=== PATIENT | male | born 1980 | race Caucasian/White ===

== ENCOUNTER 2022-10-15 06:03 | Emergency (ER) | payer OTHER, SELFPAY ==
[2022-10-15] VITALS (24 sets, daily range): BP systolic 123–143; BP diastolic 78–92; PULSE 59–78; RESP 9–21; TEMP 37.1; O2SAT 94–98; BMI 28.2
--- NOTE | 2022-10-15 06:11 | ECG_ITS ---
[facility] Test Date: 2022-10-15 Pat Name: AVERY QUINTANA Department: Room: - Gender: Male Registered Nurse Hh Case Manager: : 1980 Requested By: [id number] Order Number: [id number] Reading MD: EMILY SMITH Measurements Intervals [place] Rate: 69 P: 62 MN: 146 QRS: -56 QRSD: 104 T: 36 QT: 386 QTc: 406 Interpretive Statements 1100 Sinus rhythm 2630 Left anterior fascicular block 9150 abnormal ECG No previous ECG available for comparison Electronically Signed On 10-16-2022 7:18:34 EDT by EMILY SMITH
[2022-10-15 07:15] LABS: Basophils Absolute Auto 0.1 10^3/uL (0.0-0.1); Basophils Percent Auto 0.7 % (0.2-2.0); Eosinophils Absolute Auto 0.8 10^3/uL (0.0-0.7); Eosinophils Percent Auto 5.7 % (0.9-7.0); Hemoglobin 15.6 g/dL (14.0-18.0); Immature Granulocytes Abs Auto 0.09 10^3/uL (0.00-0.03); Immature Granulocytes Pct Auto 0.6 % (0.0-0.5); Lymphocytes Absolute Auto 2.3 10^3/uL (1.2-3.8); Lymphocytes Percent Auto 16.5 % (20.5-60.0); Mean Corpuscular HGB Conc 34.7 g/dL (29.9-35.2); Mean Corpuscular Hemoglobin 30.2 pg (25.9-34.0); Mean Corpuscular Volume 87.2 fL (80.0-94.0); Mean Platelet Volume 8.9 fL (9.5-13.5); Monocytes Absolute Auto 1.4 10^3/uL (0.3-0.8); Neutrophils Absolute Auto 9.4 10^3/uL (1.4-6.5); Neutrophils Percent Auto 66.5 % (43.0-75.0); Platelet Count 569 10^3/uL (150-450); Red Blood Count 5.16 10^6/uL (4.70-6.10); Red Cell Distribution Width 14.1 % (11.0-15.0); White Blood Count 14.1 10^3/uL (4.0-11.0)
[2022-10-15] MEDS: 0.9 % SODIUM CHLORIDE 1,000 ML 1000 ML IV (07:18)
--- NOTE | 2022-10-15 07:23 | ED_ITS ---
HPI - Dizziness General Chief Complaint: Dizziness Stated Complaint: dizziness Time Seen by Provider: 10/15/22 06:55 Source: patient Mode of arrival: walk-in Limitations: no limitations History of Present Illness HPI Narrative: pt presents to emergency department complaining of dizziness. Patient states he got up this morning and he went from a laying down to seated position and became dizzy as if the room was spinning. He states he felt unsteady as if he was drunk. He denies any nausea. He denies any visual disturbance, speech difficulties, paresthesias, or weakness. He denied any chest pain, palpitations, shortness of breath. Patient has a history of Crohn's disease and he has bloody diarrhea. He was seen in the emergency department at [place] last week had a CT scan of his abdomen done which showed inflammation and was started on Cipro, Flagyl, and prednisone 10 mg by his primary care doctor. He states he is still taking it doesn't feel like that is high enough dose for him. He has not seen a instructional technology coordinator in several years. He denies any fever, chills, or cough. Related Data Home Medications Medication Instructions Recorded Confirmed cholecalciferol (vitamin D3) 50 50 mcg PO DAILY 10/15/22 10/15/22 mcg (2,000 unit) capsule meloxicam 15 mg tablet 15 mg PO DAILY 10/15/22 10/15/22 metronidazole 500 mg tablet 500 mg PO Q8H 10/15/22 10/15/22 omeprazole 20 mg capsule,delayed 20 mg PO DAILY 10/15/22 10/15/22 release prednisone 10 mg tablet 10 mg PO DAILY 10/15/22 10/15/22 sucralfate 1 gram tablet 1 g PO BID 10/15/22 10/15/22 Previous Rx's Medication Instructions Recorded meclizine 25 mg tablet 25 mg PO TID PRN dizziness #20 tabs 10/15/22 methylprednisolone 4 mg tablets in 4 mg PO DAILY #21 ea 10/15/22 a dose pack (Medrol (Sohan)) Allergies Allergy/AdvReac Type Severity Reaction Status Date / Time No Known Drug Allergies Allergy Verified 10/15/22 06:13 Review of Systems ROS Status of ROS 10 or more systems reviewed and unremarkable except as noted in history and below [facility] Medical History (Updated 10/15/22 @ 09:53 by Gracie Gerber MD) Social History Smoking status: Former smoker Exam Narrative Exam Narrative: Nurses notes and vital signs reviewed and patient is not hypoxic. General: Nontoxic, Well-appearing and in no apparent distress. Skin: Warm, dry, no pallor noted. No Rash Head: Normocephalic, atraumatic. Neck: Supple, non-tender. Eye: Pupils are equal, round and EOMI. No scleral icterus. Ears, Nose, Mouth, and Throat: TM clear, no posterior oropharynx erythema or nasal mucosal hypertrophy, uvula is mid-line Oral mucosa is moist Cardiovascular: Regular Rate and Rhythm without murmur, gallop or rub. Respiratory: No accessory muscle use or respiratory distress. Lungs are clear to auscultation, no wheezing, rales or rhonchi Chest Wall: no tenderness Back: No midline thoracic or lumbar vertebral tenderness. No CVA tenderness Musculoskeletal: normal ROM, no calf or popliteal tenderness, no lower extremity edema/swelling GI: Abdomen is soft, non-distended. Normal bowel sounds. No masses appreciated. mild llq tenderness to palpation. No rebound, guarding, or rigidity noted. Neurological: A&O x4. No cranial nerve dysfunction observed. No truncal ataxia. Moves all extremities. Sensation intact. Psychiatric: Cooperative and interactive. Normal mood and affect. Constitutional Vital Signs, click to edit/add: Last Vital Signs Temp 98.7 F 10/15/22 06:07 Pulse 71 10/15/22 10:23 Resp 16 10/15/22 10:23 BP 137/90 H 10/15/22 10:23 Pulse Ox 96 10/15/22 10:23 O2 Del Method Room Air 10/15/22 10:23 Course Vital Signs Vital signs: Vital Signs Temperature 98.7 F 10/15/22 06:07 Pulse Rate 72 10/15/22 06:07 Respiratory Rate 20 10/15/22 06:07 Blood Pressure 143/84 H 10/15/22 06:07 Pulse Oximetry 96 10/15/22 06:07 Oxygen Delivery Method Room Air 10/15/22 06:07 Temperature 98.7 F 10/15/22 06:07 Pulse Rate 71 10/15/22 10:23 Respiratory Rate 16 10/15/22 10:23 Blood Pressure 137/90 H 10/15/22 10:23 Pulse Oximetry 96 10/15/22 10:23 Oxygen Delivery Method Room Air 10/15/22 10:23 MDM - Dizziness MDM Narrative Medical decision making narrative: Patient stated he was having some headaache to the frontal and occipital area. The scalp the brain was ordered and is unremarkable. Patient was given IV fluids. His history and physical are more consistent with vertigo. Will get records from [place]. Hemoglobin is normal. Patient given Antivert, and Solu- Medrol.CT scan results are unremarkable. Patient's symptoms are improved. At this time the patient is without objective evidence of an acute process requiring hospitalization or inpatient management. The patient has remained hemodynamically stable. No additional indication for emergent studies at this time. I answered all questions. Discussed discharge instructions including standard anticipatory guidance and what should prompt a return to the emergency department, including if they get worse are not getting better or develops any new or concerning symptoms. I've given them specific time frame in which to follow-up, and who to follow-up with. The patient demonstrates understanding. Patient is nontoxic and stable for discharge with outpatient follow-up. This note was created with the assistance of a speech recognition program. Although the intention is to generate documents that actually reflects the content of the visit, no guarantees can be provided that every mistake has been identified and corrected by editing. Differential Diagnosis Differential diagnosis: Likely benign paroxysmal positional vertigo Medical Records Attestation: I reviewed the patient's medical records. Lab Data Attestation: I reviewed the patient's lab results. Labs: Lab Results 10/15/22 Range/Units 06:05 WBC 14.1 H (4.0-11.0) 10^3/uL RBC 5.16 (4.70-6.10) 10^6/uL Hgb 15.6 (14.0-18.0) g/dL Hct 45.0 (42.0-54.0) % MCV 87.2 (80.0-94.0) fL MCH 30.2 (25.9-34.0) pg MCHC 34.7 (29.9-35.2) g/dL RDW 14.1 (11.0-15.0) % Plt Count 569 H (150-450) 10^3/uL MPV 8.9 L (9.5-13.5) fL Neut % (Auto) 66.5 (43.0-75.0) % Lymph % (Auto) 16.5 L (20.5-60.0) % [place]ath % (Auto) 10.0 (1.7-12.0) % Eos % (Auto) 5.7 (0.9-7.0) % Baso % (Auto) 0.7 (0.2-2.0) % Neut # (Auto) 9.4 H (1.4-6.5) 10^3/uL Lymph # (Auto) 2.3 (1.2-3.8) 10^3/uL Erath # (Auto) 1.4 H (0.3-0.8) 10^3/uL Eos # (Auto) 0.8 H (0.0-0.7) 10^3/uL Baso # (Auto) 0.1 (0.0-0.1) 10^3/uL Abs Immat Gran (auto) 0.09 H (0.00-0.03) 10^3/uL Imm/Tot Granulo (auto) 0.6 H (0.0-0.5) % Sodium 138 (136-145) mmol/L Potassium 3.7 (3.5-5.1) mmol/L Chloride 101 (98-107) mmol/L Carbon Dioxide 30.4 (21.0-32.0) mmol/L Anion Gap 10.3 BUN 8.0 (7.0-18.0) mg/dL Creatinine 0.98 (0.70-1.30) mg/dL Est GFR ( Amer) >60 (>=60) Est GFR (Non-Af Amer) >60 (>=60) BUN/Creatinine Ratio 8.2 Glucose 103 (74-106) mg/dL Calcium 9.0 (8.5-10.1) mg/dL Total Bilirubin 0.6 (0.2-1.0) mg/dL AST 13 L (15-37) U/L ALT 26 (16-63) U/L Alkaline Phosphatase 75 (46-116) U/L Troponin I High Sens <4.0 L (4.0-76.1) pg/mL Total Protein 7.9 (6.4-8.2) g/dL Albumin 3.6 (3.4-5.0) g/dL Globulin 4.3 g/dL Albumin/Globulin Ratio 0.8 ECG Data Attestation: I personally reviewed and interpreted this ECG as follows: Discharge Plan Discharge Chief Complaint: Dizziness Clinical Impression: Vertigo, Acute Crohn's disease Patient Disposition: Home, Self-Care Time of Disposition Decision: 09:52 Condition: Good Mode of Transportation: Private Vehicle Prescriptions / Home Meds: New meclizine 25 mg tablet 25 mg PO TID PRN (Reason: dizziness) Qty: 20 0RF methylprednisolone [Medrol (Sohan)] 4 mg tablets,dose pack 4 mg PO DAILY Qty: 21 0RF No Action cholecalciferol (vitamin D3) 50 mcg (2,000 unit) capsule 50 mcg PO DAILY meloxicam 15 mg tablet 15 mg PO DAILY Rx Instructions: AM metronidazole 500 mg tablet 500 mg PO Q8H prednisone 10 mg tablet 10 mg PO DAILY sucralfate 1 gram tablet 1 g PO BID Rx Instructions: Before eating omeprazole 20 mg capsule,delayed release(DR/EC) 20 mg PO DAILY Instructions: Crohn Disease (ED), Vertigo (ED) Stand Alone Forms: Portal Instructions Referrals: VALENCIA OLEA [Primary Care Provider] - 1 week Discharge Date/Time: 10/15/22 10:26
[2022-10-15 07:40] LABS: Anion Gap 10.3; BUN Creatinine Ratio 8.2; Carbon Dioxide 30.4 mmol/L (21.0-32.0); Chloride 101 mmol/L (98-107); Estimated GFR (African America >60 (>=60); Estimated GFR (Non-African Ame >60 (>=60); Glucose 103 mg/dL (74-106); Potassium 3.7 mmol/L (3.5-5.1); Sodium 138 mmol/L (136-145)
--- NOTE | 2022-10-15 07:40 | CT_ITS ---
The [address] [address] Patient Name: AVERY QUINTANA MRN: [id number] date: 1980 Sex: M Assigned Patient Location: ER Current Patient Location: ER Accession/Order Number: [id number] Exam Date: 10/15/2022 07:32 Report Date: 10/15/2022 07:58 At the request of: TROY HERNANDEZ Procedure: CT head/brain wo con EXAMINATION: CT head/brain wo con HISTORY: dizziness COMPARISON: No relevant comparison available. TECHNIQUE: Axial CT images were obtained without IV contrast. Dose reduction techniques were achieved by using automated exposure control and/or adjustment of mA and/or kV according to patient size and/or use of iterative reconstruction technique. FINDINGS: BRAIN: No edema, hemorrhage, mass, acute infarction, or inappropriate atrophy. CSF SPACES: No hydrocephalus, subarachnoid hemorrhage, or mass. Appropriate for age. SKULL: No fracture, mass, or other significant visible lesion. SINUSES: No significant mucosal thickening or fluid on the limited views. ORBITS: No appreciable abnormality on the limited views. OTHER: No appreciable fluid or soft tissue within the middle ear bilaterally. Mastoid air cells are clear. CT/CT head/brain wo con IMPRESSION: 1. No abnormal or suspicious findings to account for patient's symptoms. Electronically authenticated by: RACQUEL GARCIAS Date: 10/15/2022 07:58
[2022-10-15 07:41] LABS: Alanine Aminotransferase 26 U/L (16-63); Albumin Globulin Ratio 0.8; Albumin Level 3.6 g/dL (3.4-5.0); Alkaline Phosphatase 75 U/L (46-116); Aspartate Amino Transferase 13 U/L (15-37); Bilirubin Total 0.6 mg/dL (0.2-1.0); Globulin 4.3 g/dL; Total Protein 7.9 g/dL (6.4-8.2); Troponin I High Sensitivity <4.0 pg/mL (4.0-76.1)
[2022-10-15] MEDS: MECLIZINE HCL 12.5 MG TABLET 25 MG PO (07:56)
[2022-10-15] MEDS: METHYLPREDNISOLONE SOD SUCC PF 125 MG/2 ML VIAL IVP (08:13)
== END 2022-10-15 10:26 | disposition home or self-care (01) ==
PROVIDERS: Emergency Medicine; Emergency Provider Emergency Medicine; PCP Nurse Practitioner
DX: R42 Dizziness and giddiness (principal); K50.90 Crohn's disease, unspecified, without complications; Z79.899 Other long term (current) drug therapy; Z87.891 Personal history of nicotine dependence
CPT/HCPCS: 36415; 70450; 80053; 84484; 85025; 86850; 86900; 86901; 93005; 96361; 96374; 99284; J2930

== ENCOUNTER 2024-10-02 19:02 | Emergency (ER) | payer BC, SELFPAY ==
[2024-10-02 19:13] VITALS: BP 145/96; PULSE 62; TEMP 36.9; O2SAT 99; BMI 28.2
--- OUTSIDE RECORDS SUMMARY | 2024-10-02 19:14 | XMS_ITS | Encounter Summary ---
Author Organization [facility] Address [address] [place] [address] Care Team Providers Care Etl Tester Name Role Phone Renate Alfred Renee DO Primary Care Provider [phone] Thais Hathaway NP Unavailable [phone] Encounter Details Date Type Department Care Team (Late st Contact Info) Description 08/12/2023 Orders Only [facility] [address] [place] [address] Priscila Quispe NP [address] [place] [address] Social History Tobacco Use Types Packs/Day Years Used Date Smoking Tobacco: Every Day Cigarettes 1 15 Started: 08/17/2007; Last attempted to quit: 08/16/2022 Smokeless Tobacco: Former Alcohol Use Standard Drinks/Week Comments Yes 1 (1 standard drink = 0.6 oz pure alcohol) caffeine intake: 2-3 cups per day Humiliation, Afraid, Rape, and Kick questionnair e Answer Date Recorded Within the last year, have y ou been afraid of your partner or ex-partner? No 09/17/2022 Within the last year, have y ou been humiliated or emotionally abused in other ways by your partner or ex-partner? No Within the last year, have y ou been kicked, hit, slapped, or otherwise physically hurt by your partner or ex-partner? No 09/17/2022 Within the last year, have y ou been raped or forced to have any kind of sexual activity by your partner or ex-partner? No 09/17/2022 Social Connection and Isolat ion Panel [NHANES] Answer Date Recorded In a typical week, how many times do you talk on the phone with family, friends, or neighbors? More than three times a week 09/17/2022 How often do you get togethe r with friends or relatives? More than three times a week 09/17/2022 How often do you attend chur or christianity services? 1 to 4 times per year 09/17/2022 Do you belong to any clubs o r organizations such as buddhist groups, unions, fraternal or athletic groups, or school groups? No 09/17/2022 How often do you attend meet ings of the clubs or organizations you belong to? Patient declined 09/17/2022 Are you , , di vorced, , never , or living with a partner? 09/17/2022 AUDIT-C Answer Date Recorded Q1: How often do you have a drink containing alc ohol? Monthly or less 09/17/2022 Q2: How many drinks containi ng alcohol do you have on a typical day when you are drinking? 1 or 2 09/17/2022 Q3: How often do you have si x or more drinks on one occasion? Monthly 09/17/2022 Overall Financial Resource Strain (CARDIA) Answe r Date Recorded How hard is it for you to pa y for the very basics like food, housing, medical care, and heating? Not very hard 09/17/2022 PHQ-2 Answer Date Recorded Patient Health Questionnaire-2 Score 0 10/09/2022 [facility] - Occupational Stress Questionnaire Answer Date Recorded Do you feel stress - tense, restless, nervous, or anxious, or unable to sleep at night because your mind is troubled all the time - these days? Not at all 09/17/2022 Exercise Vital Sign Answer Date Recorde d On average, how many days pe r week do you engage in moderate to strenuous exercise (like a brisk walk)? 5 days 09/17/2022 On average, how many minutes do you engage in exercise at this level? 150+ min 09/17/2022 Hunger Vital Sign Answer Date Recorded Within the past 12 months, y ou worried that your food would run out before you got the money to buy more. Never true 09/18/19 Within the past 12 months, t he food you bought just didn't last and you didn't have money to get more. Never true 09/17/2022 PRAPARE - Transportation Answer Date Re corded In the past 12 months, has l ack of transportation kept you from medical appointments or from getting medications? No 08/21 In the past 12 months, has l ack of transportation kept you from meetings, work, or from getting things needed for daily living? No 09/17/2022 Housing Stability Vital Sign Answer Nairnder e Recorded In the last 12 months, was t here a time when you were not able to pay the mortgage or rent on time? Yes 09/17/2022 In the last 12 months, how many places have you lived? 1 09/17/2022 In the last 12 months, was t here a time when you did not have a steady place to sleep or slept in a mcfp (including now)? No 09/17/2022 Sex and Gender Information Value Date Recorded Sex Assigned at Not on file Legal Sex Male 7:19 PM EDT Gender Identity Not on file Sexual Orientation Not on file documented as of this encounter Plan of Treatment Not on file documented as of this encounter Procedures Procedure Name Priority Date/Time Associated Diagnosis Comments COLONOSCOPY Routine 08/09/2023 11:45 AM EDT documented in this encounter Results * (ABNORMAL) Colonoscopy (08/09/2023 11:45 AM EDT) Anatomical Region Laterality Modality Other Priscila Quispe NP HEALTH MAINTENANCE Edited Resu lt - Final documented in this encounter Visit Diagnoses Not on filedocumented in this encounter Additional Health Concerns Assessment Noted Time PHQ-9 Depression Total Score: 1 10/10/19 7:00 AM EDT documented as of this encounter Care Teams Etl Tester Relationship Specialty Start Date End Date Alfred Dewitt DO [address] [place] [address] PCP - General Family Medicine 09/16/22 Thais Hathaway, PIPE MAKER [address] [facility] [place] [id number] Nurse Practitioner Family Medicine 09/16/22 documented as of this encounter
--- OUTSIDE RECORDS SUMMARY | 2024-10-02 19:14 | XMS_ITS | Encounter Summary ---
Author Organization [facility] Address [address] [facility] [place] [address] Care Team Providers Care Cement Storage Worker Name Role Phone Renate, Alfred Renee DO Primary Care Provider [phone] Thais Hathaway DORMITORY MAID Unavailable [phone] Encounter Details Date Type Department Care Team (Late st Contact Info) Description 11/02/2022 Abstract [facility] [address] [place] [address] Thais Hathaway, NO [address] [place] [address] Social History Tobacco Use Types Packs/Day Years Used Date Smoking Tobacco: Former Cigarettes 1 15 0 08/17/2007 - 08/16/2022 Smokeless Tobacco: Former Alcohol Use Standard [...] 09/17/2022 How often do you attend chur ch or methodist services? 1 to 4 times per year 09/17/2022 Do you belong to any clubs o r organizations such as rastafari groups, unions, fraternal or athletic groups, or [...] Recorded Patient Health Questionnaire-2 Score 0 10/09/2022 [facility] - Occupational Stress Questionnaire Answer Date Recorded [...] No 09/17/2022 Housing Stability Vital Sign Answer Narinder e Recorded In the last 12 months, [...] place to sleep or slept in a jail (including now)? No 09/17/2022 Sex and Gender Information Value Date Recorded Sex Assigned at Not on file Legal Sex Male 7:19 PM EDT Gender Identity Not on file Sexual Orientation Not on file COVID-19 Exposure Response Date Recorded In the last 10 days, have yo u been in contact with someone who was confirmed or suspected to have Coronavirus/COVID-19? No / Unsure 10/08/2022 8:22 PM EDT documented as of this encounter Plan of Treatment Not on file documented as of this encounter Visit Diagnoses Not on filedocumented in this encounter Additional Health Concerns Assessment Noted Time PHQ-9 Depression Total Score: 1 10/10/19 7:00 AM EDT documented as of this encounter Care Teams Cement Storage Worker Relationship Specialty Start Date End Date Alfred Dewitt DO [address] [place] [address] PCP - General Family Medicine 09/16/22 Thais Hathaway NP [address] [place] [address] Nurse Practitioner Family Medicine 09/16/22 documented as of this encounter
--- OUTSIDE RECORDS SUMMARY | 2024-10-02 19:14 | XMS_ITS | Encounter Summary ---
Author Organization [facility] Address [address] [place] [address] Care Team Providers Care Digital Marketing Specialist Name Role Phone Renate, Alfred Renee DO Primary Care Provider [phone] Thais Hathaway MANAGER ENROLLMENT Unavailable [phone] Encounter Details Date Type Department Care Team (Late st Contact Info) Description 11/02/2022 Abstract [facility] [address] [place] [address] Thais Hathaway, NO [address] [place] [address] Social History Tobacco Use Types [...] often do you attend chur ch or sabianism services? 1 to 4 times per year 09/17/2022 Do you belong to any clubs o r organizations such as mandaen groups, unions, fraternal or athletic groups, or [...] Recorded Patient Health Questionnaire-2 Score 0 10/09/2022 [facility] - Occupational Stress Questionnaire Answer Date Recorded [...] place to sleep or slept in a long term (including now)? No 09/17/2022 Sex and Gender [...] documented as of this encounter Care Teams Digital Marketing Specialist Relationship Specialty Start Date End Date Alfred Dewitt DO [address] [place] [address] PCP - General Family Medicine 09/16/22 Thais Hathaway NP [address] [place] [address] Nurse Practitioner Family Medicine 09/16/22 documented as of this encounter
--- OUTSIDE RECORDS SUMMARY | 2024-10-02 19:15 | XMS_ITS | Clinical Summary ---
Author Organization [facility] Address [address] [place] [address] Care Team Providers Care Traffic And Transport Planner Name Role Phone Alfred Dewitt DO Primary Care Provider [phone] Thais Hathaway SEED AND FERTILIZER SPECIALIST Unavailable [phone] Allergies No known active allergies Medications omeprazole OTC (PriLOSEC OTC) 20 MG EC tablet Take 20 mg by mouth in the morning. Take before meals. Active adalimumab (Humira) 40 MG/0.8ML Prefilled Syringe Kit prefilled syringe Inject 40 mg under the skin every 14 (fourteen) days Active ferrous sulfate 325 (65 Fe) MG EC tabletIndication s:Other iron deficiency anemia TAKE 1 TABLET (325 MG) BY MOUTH IN THE MORNING. TAKE WITH MEALS. DO NOT CRUSH, CHEW, OR SPLIT.. 90 tablet 1 07/05/2024 Active Active Problems Problem Noted Date Diagnosed Date Crohn's disease of both smal l and large intestine without complication 09/18/2022 Gastroduodenitis 09/18/2022 Mixed hyperlipidemia 09/18/2022 Smoker 09/18/2022 Vitamin D deficiency 09/18/2022 Peyronie's disease 12/07/2016 Lung nodule 07/29/2011 Resolved Problems Problem Noted Date Diagnosed Date Resolved Date History of acute cholecystitis 01/24/2021 10/11/2022 Acquired curvature of penis 12/07/2016 10/11/2022 Penile pain 12/07/2016 10/11/2022 Crohn's disease 05/07/2011 10/11/2022 Encounters Date Type Department Care Team Description 09/15/2024 Clinisync Result Encounter [facility] External Department Unsolicited Provider, Generic External Data 07/05/2024 Refill [facility] [address] [place] [address] Priscila Quispe, NO Other iron deficiency anemia from Last 3 Months Immunizations Immunization Administration Dates Next Due Tdap 10/01/2017 Family History Medical History Relation Name Comments Eczema Brother Irritable bowel syndrome Brother No Known Problems Daughter Coronary artery disease Father Heart disease Father Irritable bowel syndrome Father Bone cancer Maternal Grandfather Adam Fretz Dementia Maternal Grandmother Hypertension Mother Tiana Rohrbacher Seizures Mother Tiana Rohrbacher Thyroid cancer Mother Tiana Rohrbacher Stroke Paternal Grandfather Toni Alicea Breast cancer Paternal Grandmother Laura portillo No Known Problems Sister No Known Problems Son Relation Name Status Comments Brother x3 Daughter Alive x2 Father Alive Maternal Grandfather Adam Garcia Maternal Grandmother Mother Tiana Janellerbacher Alive Paternal Grandfather Toni Alicea Paternal Grandmother Laura portillo Sister Alive x2 Son Alive x2 Social History Tobacco Use Types Packs/Day Years Used Date Smoking Tobacco: Every Day Cigarettes 1 15 Started: 08/17/2007; Last attempted to quit: 08/16/2022 Smokeless Tobacco: Former Tobacco Cessation:Ready to Q uit: Not Asked; Counseling Given: Not Answered Alcohol Use Standard Drinks/Week Comments Yes 1 (1 standard drink = 0.6 oz pure alcohol) caffeine intake: 2-3 cups per day B1300 Health Literacy Answer Date Recor ded How often do you need to hav e someone help you when you read instructions, pamphlets, or other written material from your doctor or pharmacy? Never 12/31/2023 Humiliation, Afraid, Rape, and Kick questionnair e [...] neighbors? More than three times a week 12/31/2023 How often do you get togethe r with friends or relatives? More than three times a week 12/31/2023 How often do you attend chur or cheondoism services? Patient declined 12/31/2023 Do you belong to any clubs o r organizations such as mosque groups, unions, fraternal or athletic groups, or school groups? Patient declined 12/31/2023 How often do you attend meet ings of the clubs or organizations you belong to? Patient declined 12/31/2023 Are you , , di vorced, , never , or living with a partner? 12/31/2023 AUDIT-C Answer Date Recorded Q1: How often do you have a drink containing alc ohol? Patient declined 12/31/2023 Q2: How many drinks containi ng alcohol do you have on a typical day when you are drinking? Patient declined 12/31/2023 Q3: How often do you have si x or more drinks on one occasion? Patient declined 12/31/2023 Overall Financial Resource Strain (CARDIA) Answe r Date Recorded How hard is it for you to pa y for the very basics like food, housing, medical care, and heating? Patient declined 12/31/2023 PHQ-2 Answer Date Recorded Patient Health Questionnaire-2 Score 0 01/07/2024 [facility] - Occupational Stress Questionnaire Answer Date Recorded Do you feel stress - tense, restless, nervous, or anxious, or unable to sleep at night because your mind is troubled all the time - these days? Not at all 12/31/2023 Exercise Vital Sign Answer Date Recorde d On average, how many days pe r week do you engage in moderate to strenuous exercise (like a brisk walk)? Patient declined On average, how many minutes do you engage in exercise at this level? Patient declined 12/31/2023 Hunger Vital Sign Answer Date Recorded Within the past 12 months, y ou worried that your food would run out before you got the money to buy more. Patient declined Within the past 12 months, t he food you bought just didn't last and you didn't have money to get more. Patient declined 01/2024 PRAPARE - Transportation Answer Date Re corded In the past 12 months, has l ack of transportation kept you from medical appointments or from getting medications? Patient declined 12/31/2023 In the past 12 months, has l ack of transportation kept you from meetings, work, or from getting things needed for daily living? Patient declined 12/31/2023 Housing Stability Vital Sign Answer Narinder e [...] place to sleep or slept in a long-term (including now)? No 09/17/2022 Housing Stability Vital Sign Answer Narinder e Recorded In the last 12 months, was t here a time when you were not able to pay the mortgage or rent on time? Patient declined 12/31/19 24 Number of Times Moved in the Last Year Not on fi le 12/31/2023 At any time in the past 12 m [facility], were you homeless or living in a long-term (including now)? Patient declined 12/31/2023 Sex and Gender Information Value Date Recorded Sex Assigned at Not on file Legal Sex Male 7:19 PM EDT Gender Identity Not on file Sexual Orientation Not on file Last Filed Vital Signs Vital Sign Reading Time Taken Comments Blood Pressure 138/88 01/07/2024 1:19 PM EDT Pulse 90 01/07/2024 1:19 PM EDT Temperature 36.3 C (97.4 F) 01/07/2024 1:19 PM EDT Respiratory Rate - - Oxygen Saturation 98% 01/07/2024 1:19 PM EDT Inhaled Oxygen Concentration - - Weight 83.5 kg (184 lb) 01/07/2024 1:19 PM EDT Height 170.2 cm (5' 7 ) 01/07/2024 1:19 PM EDT Body Mass Index 28.82 01/07/2024 1:19 PM EDT Plan of Treatment Health Maintenance Due Date Last Done Comments Influenza Vaccine (#1) 2024 Procedures Procedure Name Priority Date/Time Associated Diagnosis Comments [facility]PT TESTOSTERONE,BIOAVA IL Routine 09/15/2024 11:12 AM EDT from Last 3 Months Results * (ABNORMAL) [facility] TESTOSTERONE,BIOAVAIL (09/15/2024 11:12 AM EDT) [facility] TESTOSTERONE, TOTAL 274 249 - 836 ng/dL [facility]PT SEX HORM BIND GLOB 36 10 - 60 nmol/L [facility]PT TESTOSTERONE,FREE 50.7 47.0 - 244.0 pg/mL [facility] Comment: The concentration of free testosterone is derived from a mathematical expression based on the constant for the binding of testosterone to albumin and/or sex hormone binding globulin. [facility]PT TEST,BIOAVAIL 118.8(L) 130 - 680 ng/dL [facility] Comment: The concentration of bioavailable testosterone is derived from a mathematical expression based on the constant for the binding of testosterone to albumin and/or sex hormone binding globulin. 09/15/2024 11:1 2 AM EDT 09/15/2024 11:13 AM EDT Narrative [facility] - 09/15/2024 4:33 PM EDT Original Ordering Provider: LAVELLE COX us Generic External Data Provider [facility] from Last 3 Months Insurance BCBS Care Teams Traffic And Transport Planner Relationship Specialty Start Date End Date Alfred Dewitt DO [address] [place] [id number] PCP - General Family Medicine 09/16/22 Thais Hathaway, NO [address] [place] [address] Nurse Practitioner Family Medicine 09/16/22
--- OUTSIDE RECORDS SUMMARY | 2024-10-02 19:15 | XMS_ITS | Encounter Summary ---
Author Organization [facility] Address [address] [place] [address] Care Team Providers Care Lock Tender Name Role Phone Renate, Alfred Renee DO Primary Care Provider [phone] Thais Hathaway PRODUCT ENGINEERING MANAGER Unavailable [phone] Encounter Details Date Type Department Care Team (Late st Contact Info) Description 10/20/2023 Abstract [facility] [address] [place] [address] Thais Hathaway, NO [address] [place] [address] Social History Tobacco Use Types [...] often do you attend chur ch or episcopal services? 1 to 4 times per year 09/17/2022 Do you belong to any clubs o r organizations such as uatsdin groups, unions, fraternal or athletic groups, or [...] Recorded Patient Health Questionnaire-2 Score 0 10/09/2022 [facility] - Occupational Stress [...] place to sleep or slept in a half-way (including now)? No 09/17/2022 Sex and Gender [...] documented as of this encounter Care Teams Lock Tender Relationship Specialty Start Date End Date Alfred Dewitt DO [address] [place] [address] PCP - General Family Medicine 09/16/22 Thais Hathaway NP [address] [place], [place] [id number] Nurse Practitioner Family Medicine 09/16/22 documented as of this encounter
--- NOTE | 2024-10-02 19:22 | ED.GENADUL1 ---
HPI HPI - General Adult General Chief complaint: Skin/Abscess/Foreign Body Stated complaint: INSECT BITE, SKIN DISCOLORATION Time Seen by Provider: 10/02/24 19:16 Source: patient Mode of arrival: walk-in Limitations: no limitations History of Present Illness HPI narrative: Patient is a 44-year-old male who presents to the emergency department today for evaluation concerns for an insect bite to his back. He states he noticed a reddened area that was pruritic at the time on 09/30. He reports since then this area has continued to increase in size and redness. He does endorse some mild pain at the site. He reports it is no longer pruritic. No sick symptoms of fever/chills or nausea/vomiting. He states he is not diabetic. He is unsure of what bit him and is unsure if this may have been a tick. Related Data Home Medications ?Medication ?Instructions ?Recorded ?Confirmed cholecalciferol (vitamin D3) 50 50 mcg PO DAILY 10/15/22 10/15/22 mcg (2,000 unit) capsule meloxicam 15 mg tablet 15 mg PO DAILY 10/15/22 10/15/22 metronidazole 500 mg tablet 500 mg PO Q8H 10/15/22 10/15/22 omeprazole 20 mg capsule,delayed 20 mg PO DAILY 10/15/22 10/02/24 release prednisone 10 mg tablet 10 mg PO DAILY 10/15/22 10/15/22 sucralfate 1 gram tablet 1 g PO BID 10/15/22 10/15/22 Previous Rx's ?Medication ?Instructions ?Recorded meclizine 25 mg tablet 25 mg PO TID PRN dizziness #20 tabs 10/15/22 methylprednisolone 4 mg tablets in 4 mg PO DAILY #21 ea 10/15/22 a dose pack (Medrol (Sohan)) doxycycline hyclate 100 mg tablet 100 mg PO BID 7 days #14 tabs 10/02/24 Allergies Allergy/AdvReac Type Severity Reaction Status Date / Time No Known Drug Allergies Allergy Verified 10/02/24 19:13 Opioid HPI Opioid Management Most Recent Opioid Data: Last Pain Scale 4 Today, 19:18 Review of Systems ROS Status of ROS 10 or more systems reviewed and unremarkable except as noted in history and below [facility] Medical History (Updated 10/02/24 @ 19:22 by Love Alvarez NP) Crohn disease ?K50.90 - Crohn's disease, unspecified, without complications (ICD-10) Social History Smoking status: Former smoker Little interest or pleasure in doing things: not at all Feeling down, depressed, or hopeless: not at all Exam Narrative Exam Narrative: Constituational: Awake/ alert, no apparent distress, well hydrated HENMT: normocephalic, external ears normal, moist oral mucous membranes and oropharynx normal Eyes: EOMI and conjunctivae normal Neck: ROM intact Chest: inspection of chest normal Respiratory: Normal respiratory effort Back: nontender MSK: ROM intact, +NVI Skin: + Approximate 7 cm area of erythema and edema with punctate ulceration in center to posterior/lateral L mid back, no wound drainage Neuro: no focal deficits Psych: mental status grossly normal Constitutional Vital Signs, click to edit/add: Last Vital Signs Temp 98.5 F 10/02/24 19:13 Pulse 62 10/02/24 19:13 Resp 17 10/02/24 19:13 BP 145/96 H 10/02/24 19:13 Pulse Ox 99 10/02/24 19:13 O2 Del Method Room Air 10/02/24 19:13 Course Vital Signs Vital signs: Vital Signs Temperature 98.5 F 10/02/24 19:13 Pulse Rate 62 10/02/24 19:13 Respiratory Rate 17 10/02/24 19:13 Blood Pressure 145/96 H 10/02/24 19:13 Pulse Oximetry 99 10/02/24 19:13 Oxygen Delivery Method Room Air 10/02/24 19:13 Temperature 98.5 F 10/02/24 19:13 Pulse Rate 62 10/02/24 19:13 Respiratory Rate 17 10/02/24 19:13 Blood Pressure 145/96 H 10/02/24 19:13 Pulse Oximetry 99 10/02/24 19:13 Oxygen Delivery Method Room Air 10/02/24 19:13 Medical Decision Making MDM Narrative Medical decision making narrative: The patient is a well-appearing 44-year-old male who presented to the emergency department today for evaluation concerns for an infected insect bite to his back. Emanation patient with clinical evidence consistent with insect bite and surrounding cellulitis. No evidence of abscess or wound infection. Discussed these findings with the patient including recommendations for supportive care. Will discharge home with doxycycline. Patient has low suspicion for tick bite but is unsure of what may have bit him. Will discharge home with doxycycline. Discussed consideration for tick and Lyme labs however will hold off for now. Patient will follow-up with his primary care provider for reevaluation. Discussed signs and symptoms of any worsening condition and when to consider reevaluation by the emergency department. Patient verbalized an understanding of this and is agreeable with the plan to be discharged home. Medical Records Medical records reviewed: Yes I reviewed the patient's medical records Discharge Plan Discharge Chief Complaint: Skin/Abscess/Foreign Body Clinical Impression: Insect bite Patient Disposition: Home, Self-Care Prescriptions / Home Meds: New doxycycline hyclate 100 mg tablet 100 mg PO BID 7 Days Qty: 14 0RF No Action cholecalciferol (vitamin D3) 50 mcg (2,000 unit) capsule 50 mcg PO DAILY meloxicam 15 mg tablet 15 mg PO DAILY Rx Instructions: AM metronidazole 500 mg tablet 500 mg PO Q8H prednisone 10 mg tablet 10 mg PO DAILY sucralfate 1 gram tablet 1 g PO BID Rx Instructions: Before eating omeprazole 20 mg capsule,delayed release(DR/EC) 20 mg PO DAILY meclizine 25 mg tablet 25 mg PO TID PRN (Reason: dizziness) Qty: 20 0RF methylprednisolone [Medrol (Sohan)] 4 mg tablets,dose pack 4 mg PO DAILY Qty: 21 0RF Print Language: Sammarinese Instructions: Insect Bite or Sting (ED) Additional Instructions: Take antibiotics as prescribed. May take Tylenol or ibuprofen as needed for any pain. May take Benadryl as needed for any itching or concern for allergic reaction. Monitor for any signs and symptoms of infection as discussed not limited to increased redness and swelling. Please up with your primary care provider for reevaluation as discussed. May return to the ER with any concerns. Referrals: VALENCIA OLEA [Primary Care Provider, Unknown] - 1 week
[2024-10-02 19:35] VITALS: BP 123/84; PULSE 73; O2SAT 97
== END 2024-10-02 19:37 | disposition home or self-care (01) ==
PROVIDERS: Emergency Provider Emergency Medicine; PCP Nurse Practitioner
DX: S20.469A Insect bite (nonvenomous) of unspecified back wall of thorax, initial encounter (principal); W57.XXXA Bitten or stung by nonvenomous insect and other nonvenomous arthropods, initial encounter; Z87.891 Personal history of nicotine dependence
CPT/HCPCS: 99283

== ENCOUNTER 2025-03-08 19:33 | Emergency (ER) | payer BC, SELFPAY ==
--- OUTSIDE RECORDS SUMMARY | 2025-03-01 19:28 | XMS_ITS | Continuity of Care Document ---
Author Organization [facility] Address [address] [place] [address] Phone Care Team Providers Care Detention Worker Name Role Phone Priscila Quispe NP Primary Care Provider Jaime Kaufman MD Attending Provider [phone] Care Teams Patient Care Team Team Status: Active Member Role/Relationship Status Dates Priscila Quispe , NO Primary Care Provider Active Patient Care Team Team Status: Inactive Member Role/Relationship Status Dates Priscila Quispe NP Primary Care Provider Active Start: March 01, 2025 End: March 01Shan Hoganending ProviderActiveStart: March 01, 2025 End: March 01, 2025 Chief Complaint and Reason for Visit Chief Complaint Admit Date K50.90,R10.9,R19.7 March 01, 2025 9:05am Allergies, Adverse Reactions, Alerts Allergen Type Severity Reaction Last Updated Verified Status No Known Allergies Allergy Unknown October 10, 2024 8:24amYesActive Social History Smoking Status Status Start Date End Date Date of Observa tion Current some day smoker August 09, 2023 8:37am Observation Status Observation Response Date of Response Legal Sex Male (finding) Sex Assigned At BirthMaleJanuary 1980 Family History Relationship Condition Age at Onset Recorded Date/T choco brother Ulcerative colitis Unknown fatherUlcerative colitisUnknown Problems Active Problems Problem Diagnosis/Recorded Date Onset Date Stat 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 (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) use of immunosuppressive biologic October 10, 2024 8:32am Unknown Active Crohn's disease November 02, 2022 7:40am Unknown Active Diarrhea February 20, 2025 2:44pm Unknown Ac tive Vertigo October 10, 2024 8:24am Unknown Activ e GERD (gastroesophageal reflux disease) July 30, 2023 9:14am Unknown Active Abdominal pain February 20, 2025 2:43pm Unknown Active Medications Medication Status Dose Units Route Directions Qty Days Refills S tart Date Stop Date End Date Reason(s) Instructions Adherence Adalimumab (Humira(Cf) Pen) 40 mg/0.4 mL pen injector kit Discontinued 40 MG SUBCUT EVERY 2 WEEKS 2 28 March 20, 2024 10:44am October 10, 2024 8:30amulcerative colitisstart on day 29 of therapyOmeprazole 20 mg Capsule,Delayed Release(Dr/Ec)Ievjbfjzcmpl76IRVCTydjmSlhhsq 2022 11:00pmJuly 2024 8:31amAdalimumab (Humira(Cf) Pen) 40 mg/0.4 mL pen injector vydXwzssyvmxxcz64HITKWWIJHQDFA 2 WEEKSMay 2023 11:00pmDece2023 10:47amulcerative colitisstart on day 29 of therapyAdalimumab (Humira(Cf) Pen) 40 mg/0.4 mL pen injector ekzVdqwmx92WKVKVYHYIKNMG 2 [id number] October 10, 2024 8:30amulcerative colitisstart on day 29 of therapyUnknown Omeprazole 20 mg capsule,delayed release(DR/EC)Phczll89GYIOUpsns207561Rjmv 2024 8:31amUnknown Relevant Diagnostic Tests and/or Laboratory Data Laboratory Results Test Collection Date/Time Result Date/Time Result Interpretation Reference Range Result Comment Performing Site Corrected White Blood Count March 01, 2025 9:28am March 01, 2025 10:02am 17.5 10*3/uL Above high normal 4.1-10.5 [facility] [id number] [address] [facility] [address]Fhjyyreuwis WBC CountDe2024 9:28amDece2024 10:02am17.5 10*3/uLAbove high normal4.1-10.5F[facility] [id number] [address] [facility] [address]Drr Blood CountDecember 2024 9:28amDecember 2024 10:02am4.61 10*6/uL3.90-5.60[facility] [id number] [address] [facility] 100[address]LsecnytpvvFhqffmsl 2024 9:28amDecember 2024 10:02am 13.7 g/dL13.0-17.0[facility] [id number] [address] [facility] [address]OvvaodnktwMlroywwb 2024 9:28amDecember 2024 10:02am 40.7 %38.8-50.0[facility] [id number] [address] [facility] [address]658Nxcl Corpuscular VolumeDecember 2024 9:28amDecember 2024 10:02am88.3 fL83.5-101[facility] [id number] [address] [facility] [address]Irxb Corpuscular HemoglobinDecember 2024 9:28amDecember 2024 10:02am29.7 pg27.5-35.2FSt. [facility] [id number] [address] [place] [address]Dgdg Corpuscular Hemoglobin ConcentDecember 2024 9:28am March 01, 2025 10:02am33.6 g/dL32.5-35.6FSt. [facility] [id number] [address] [facility] 16247Gkx Cell Distribution WidthDecember 2024 9:28amDecember 2024 10:02am14.3 %12.0-14.8[facility] [id number] [address] [facility] [address]Dghmnkhz CountDecember 2024 9:28amDecember 2024 10:98ix369 10*3/uLAbove high -716NsblbhqqqL[facility] [id number] [address] [facility] [address]Udsk Platelet VolumeMarch 01, 2025 9:28amDe2024 10:02am6.7 fL6.6-10.1FSt. [facility] [id number] [address] [facility] [address]Axxwldfnwtw (%) (Auto)March 01, 2025 9:28amMarch 01, 2025 10:02am57.8 %.[facility] [id number] [address] [facility] [address]Clqhesxizsg (%) (Auto)March 01, 2025 9:28amDe2024 10:02am24.7 %.[facility] [id number] [address] [facility] 466[address]Utfblevqr (%) (Auto)March 01, 2025 9:28amMarch 01, 2025 10:02am10.2 %.[facility] [id number] [address] [facility] 12097Qpuwswxogtx (%) (Auto)March 01, 2025 9:28amMarch 01, 2025 10:02am6.8 %.[facility] [id number] [address] [facility] [address]Jeyxetbxl (%) (Auto)March 01, 2025 9:28amMarch 01, 2025 10:02am0.5 %.[facility] [id number] [address] [facility] [address]36[address]Dssyrepca RBC Relative Count (auto)March 01, 2025 9:28am March 01, 2025 10:02am0.0 /100{WBC}0-0.5FSt. [facility] [id number] [address] [facility] 880[address]Qrdwrbldgaq # (Auto)March 01, 2025 9:28amDe2024 10:02am10.1 10*3/uLAbove high normal1.8-7.7FSt. [facility] [id number] [address] [facility] [address]Kwauwvemymy # (Auto)March 01, 2025 9:28amDecemb2024 10:02am4.3 10*3/uL1.00-4.8[facility] [id number] [address] [facility] 24083Uslkvephx # (Auto)March 01, 2025 9:28amDeceer 2024 10:02am1.8 10*3/uLAbove high normal0.0-0.8[facility] [id number] [address] [place] [address]13770Eosinophils # (Auto)March 01, 2025 9:28amDecember 2024 10:02am1.2 10*3/uLAbove high normal0.0-0.45[facility] [id number] [address] [place] 0513770Basophils # (Auto)March 01, 2025 9:28amDece2024 10:02am0.1 10*3/uL0.0-0.2FSt. [facility] [id number] [address] [place], [place] [address]Erythrocyte Sedimentation RateDece2024 9:28am March 01, 2025 10:42am23 mm/hrAbove high normal0-14[facility] [id number] [address] [place], [place] [address]Glucose LevelMarch 01, 2025 9:28amDece2024 10:20am82 mg/dD10-248LIN recommended reference rangeRandom Glucose Reference Range is dependent on time and content of last meal. Glucose of more than 200 mg/dL in a nonstressed, ambulatory subject supports the diagnosisof Diabetes Mellitus.[facility] [id number] [address] [facility] [address]Sdqnz Urea NitrogenMarch 01, 2025 9:28amDece2024 10:20am7 mg/dL7-25[facility] [id number] [address] [place] [address]PwmkktousiUkvpzfnw 2024 9:28amDe2024 10:20am 0.86 mg/dL0.70-1.30[facility] [id number] [address] [facility] [address]Vgeezmniu GFR (CKD-EPI)March 01, 2025 9:28amDecember 2024 10:20am> 60.0 mL/MinLancaster Municipal Hospital Ctr [id number] [address] [facility] 25[address]Fwxdor LevelDecember 2024 9:28amDecember 2024 10:88we794 mmol/N123-429KdppsclhyLancaster Municipal Hospital [facility] [id number] [address] [facility] 826[address]Giwpwrkxb LevelDecember 2024 9:28amDecember 2024 10:20am4.1 mmol/L3.5-5.1FSt. [facility] [id number] [address] [facility] 67[address]Yjyrhtdq LevelDece2024 9:28amDecember 2024 10:87ev814 mmol/B88-654IivkdjtqiLancaster Municipal Hospital [facility] [id number] [address] [facility] [address]Ezkzhi Dioxide LevelDeceer 2024 9:28amDecember 2024 10:20am32.7 mmol/LAbove high dujfht74.0-31.0[facility] [id number] [address] [facility] 838[address]Tsytv GapDece2024 9:28amDecember 2024 10:20am 9.4 mEq/L6.0-15.0[facility] [id number] [address] [facility] 76[address]Rmnnlvn LevelDecember 2024 9:28amDecember 2024 10:20am8.9 mg/dL8.6-10.3FSt. [facility] [id number] [address] [facility] 17[address]Owyiq ProteinDecember 2024 9:28amDecember 2024 10:20am6.3 g/dLBelow low normal6.4-8.9[facility] [id number] [address] [facility] [address]AwcxtswZkdlarlp 2024 9:28amDecember 2024 10:20am3.6 g/dL3.5-5.7FSt. [facility] [id number] [address] [facility] 14281QtngfoqnQeoanveu 2024 9:28amDecember 2024 10:20am 2.7 g/dLLancaster Municipal Hospital [facility]tr [id number] [address] [facility] [address]Qhgipfn/Globulin RatioMarch 01, 2025 9:28amDeceer 2024 10:20am1.3FSt. [facility] [id number] [address] [facility] 00969Zrlzq BilirubinMarch 01, 2025 9:28amDe2024 10:20am0.4 mg/dL0.3-1.0[facility] [id number] [address] [facility] 11292Lmzrbbbjl Amino Transf (AST/SGOT)March 01, 2025 9:28am March 01, 2025 10:20am10 U/LBelow low ukeeee57-65VfafvdqdxLancaster Municipal Hospital [facility]tr [id number] [address] [facility] 47[address]Lbawhjd Aminotransferase (ALT/SGPT)March 01, 2025 9:28am March 01, 2025 10:20am10 U/L7-52[facility] [id number] [address] [facility] 60[address]Bompesyw PhosphataseDece2024 9:28amDecember 2024 10:20am68 U/B95-104KtvsyityzLancaster Municipal Hospital Ctr [id number] [address] [facility] 236[address]P-Rhwupglm Protein, QuantitativeMarch 01, 2025 9:28am March 01, 2025 10:20am0.6 mg/dLAbove high normal0.0-0.5FSt. [facility] [id number] [address] [facility] [address]62[address]Yjtupyng Creatinine Clearance (ChemDecember 2024 9:28am March 01, 2025 10:20[facility] [id number] [address] [place] [address] Advance Directives Advance Directive Response Recorded Date/ Time Advance Directives No October 29, 2022 2:27pm Insurance Providers Guarantor James Alicea Address [address] [facility] [address]Nmtgrad Info.Home Phone: Payer Group Member ID Coverage Type Subscriber Relationship to Subscriber Effective Date Expiration Date Stanley AKHTAR Id: [id number] J Walters Id: [id number] [address] [facility] [address] Home Phone: Self Encounters Encounter Location(s) Arrival/Admit Date Discharge/Departure Date Discharge/Departure Disposition Provider(s) Departed Clinical -Lab [facility] March 01, 2025 9:05am March 01, 2025 9:06am Discharged to home care or self care (routine discharge) Jaime Kaufman MD Plan of Treatment Future Tests Future scheduled test information is unavailable Pending Tests Test Name Ordered Date Scheduled Date Stl Campylobacter PCR (Ref Lab) March 01 6:00am Stl C. diff toxin A/B PCR (Ref Lab)March 01, 2025 6:00amStl P. shigelloides PCR (Ref Lab)March 01, 2025 6:00amStl Salmonella PCR (Ref Lab)March 01, 2025 6:00amStl Vibrio PCR (Ref Lab)March 01, 2025 6:00amStl Vibrio cholerae PCR (Ref Lab)March 01, 2025 6:00amStl Y. entercolitica PCR (Ref Lab)March 01, 2025 6:00amStl Enteroaggr E.coli PCR (Ref Lab)March 01, 2025 6:00amStl Enterpath E.coli PCR (Ref Lab)March 01, 2025 6:00amStl Enterotoxgn E.coli PCR(Ref Lab)March 01, 2025 6:00amStl Shiga-tox E.coli PCR (Ref Lab)March 01, 2025 6:00amStl E. Coli O157 PCR (Ref Lab)March 01, 2025 6:00amStl Shigella/invas E.coli (Ref Lab)March 01, 2025 6:00am Stl Cryptosporidium PCR (Ref Lab)March 01, 2025 6:00amStl C. cayetanensis (Ref Lab)March 01, 2025 6:00amStl E. histolytica PCR (Ref Lab)March 01, 2025 6:00amStl Giardia lamblia PCR (Ref Lab)March 01, 2025 6:00amStl Adenovirus F40/41 PCR (Ref Lab)March 01, 2025 6:00amStl Astrovirus PCR (Ref Lab)March 01, 2025 6:00amStl Norovirus GI/GII PCR (Ref Lab)March 01, 2025 6:00amStl Rotavirus A PCR (Ref Lab)March 01, 2025 6:00amStl Sapovirus PCR (Ref Lab)March 01, 2025 6:00am Future Visits Future appointment information is unavailable Future Procedures Future procedure information is unavailable Future Medications Future medication information is unavailable Patient Instructions Patient instructions are unavailable
[2025-03-08 19:52] VITALS: BP 141/93; PULSE 68; TEMP 36.8; O2SAT 97; BMI 28.2
--- NOTE | 2025-03-08 21:08 | CT_ITS ---
[address] [address] Patient Name: AVERY QUINTANA MRN: [id number] date: 1980 Sex: M Assigned Patient Location: ED.MAIN Current Patient Location: ED.MAIN Accession/Order Number: [id number] Exam Date: 03/08/2025 21:45 Report Date: 03/08/2025 22:17 At the request of: ELOY HI Procedure: CT abdomen pelvis w con CT abdomen pelvis w con 03/08/2025 9:52 PM SIGNS AND SYMPTOMS: ^Lower abdominal pain, h/o Crohns, colectomy \S.br\ TECHNIQUE: Multidetector ct axial images of the abdomen and pelvis were obtained with IV contrast. Multiplanar reformats were performed and reviewed to further define anatomy and possible pathology. CT was performed with one or more of the following dose reduction techniques: Automated exposure control, adjustment of the mA and/or kV according to patient size, or use of iterative reconstruction technique. COMPARISON: None. FINDINGS: Lower Chest: Within normal limits. ABDOMEN: Liver: Within normal limits. Bile Ducts: Normal caliber. Gallbladder: Previously removed Pancreas: Within normal limits. Spleen: Within normal limits. Adrenals: Within normal limits. Kidneys: Within normal limits. Pelvis: Reproductive Organs: No pelvic masses. Ureters: Within normal limits. Bladder: Within normal limits. Bowel: There is evidence of previous partial colectomy with surgical anastomosis in the sigmoid colon. There is wall thickening relatively diffusely along the colon suggesting colitis. This is consistent with a history of Crohn's disease. There is also surgical anastomosis along the ascending colon suggesting partial right hemicolectomy. Mesenteric Lymph Nodes: No enlarged mesenteric lymph nodes. Peritoneum: No ascites or free air, no fluid collection. Vessels: Atherosclerotic changes are noted in the abdominal aorta. Retroperitoneum: Within normal limits. Abdominal Wall: There is evidence of previous midline laparotomy. Bones: Within normal limits. CT/CT abdomen pelvis w con IMPRESSION: There is wall thickening relatively diffusely along the colon suggesting colitis. This is consistent with a history of Crohn's disease. No bowel obstruction or obstructive uropathy. Postoperative changes are noted as above. Impression dictated by: Galindo Patel M.D. 03/08/2025 10:17 PM Dictation Location: [place] [address] Electronically authenticated by: [id number] Y Date: 03/08/2025 22:17
--- NOTE | 2025-03-08 21:10 | ED.GENADUL1 ---
Documented by User: KOLTON Flores 03/08/25 21:58 HPI HPI - General Adult General Chief complaint: Abdominal Pain Stated complaint: ROBIN'Nikolas FLAIR UP Time Seen by Provider: 03/08/25 20:21 Source: patient Mode of arrival: walk-in Limitations: no limitations History of Present Illness HPI narrative: Patient is a 44-year-old male with a PMH of Crohn's that presents with acute on chronic abdominal pain that has been flared up for about 3 weeks. He does follow with Dr. Kaufman at [facility] and has been in contact with his office several times about this flareup. He does have a history of a colectomy in 2010. He had labs and a stool sample done last week. Wednesday he was placed on prednisone 80 mg daily to start and will taper off of this after a few weeks. He was also given Bentyl, but this never seems to help. He does report nausea but minimal vomiting. He has not been able to eat well and has only been drinking fluids and reports a 9 pound weight loss within the last week or so. 3 weeks ago he started having bloody and mucus stools and then would get the abdominal pain. He states that 2 days ago he did develop a fever to 101.8. He last spoke with Dr. Kaufman's office today and they did not recommend antibiotics currently. They cannot see him in the office until the end of March. Related Data Home Medications ?Medication ?Instructions ?Recorded ?Confirmed cholecalciferol (vitamin D3) 50 50 mcg PO DAILY 10/15/22 10/15/22 mcg (2,000 unit) capsule meloxicam 15 mg tablet 15 mg PO DAILY 10/15/22 10/15/22 metronidazole 500 mg tablet 500 mg PO Q8H 10/15/22 10/15/22 omeprazole 20 mg capsule,delayed 20 mg PO DAILY 10/15/22 10/02/24 release prednisone 10 mg tablet 10 mg PO DAILY 10/15/22 10/15/22 sucralfate 1 gram tablet 1 g PO BID 10/15/22 10/15/22 Previous Rx's ?Medication ?Instructions ?Recorded meclizine 25 mg tablet 25 mg PO TID PRN dizziness #20 tabs 10/15/22 methylprednisolone 4 mg tablets in 4 mg PO DAILY #21 ea 10/15/22 a dose pack (Medrol (Sohan)) doxycycline hyclate 100 mg tablet 100 mg PO BID 7 days #14 tabs 10/02/24 Allergies Allergy/AdvReac Type Severity Reaction Status Date / Time No Known Drug Allergies Allergy Verified 03/08/25 19:52 Opioid HPI Opioid Management Most Recent Opioid Data: Last Pain Scale 9 Today, 21:39 Last MAR Pain Assessment Today, 21:39 Review of Systems ROS Status of ROS 10 or more systems reviewed and unremarkable except as noted in history and below [facility] Medical History (Updated 03/08/25 @ 21:57 by KOLTON Flores) Crohn disease ?K50.90 - Crohn's disease, unspecified, without complications (ICD-10) Social History Smoking status: Former smoker Little interest or pleasure in doing things: not at all Feeling down, depressed, or hopeless: not at all Exam Narrative Exam Narrative: General: No distress, age-appropriate Skin: Warm, dry, no pallor. No rash. Head: Normocephalic, atraumatic. Neck: Supple, non-tender. Eye: Pupils are equal, round and EOMI. No scleral icterus. Ears, Nose, Mouth, and Throat: No nasal mucosal hypertrophy. Oral mucosa is moist, no posterior oropharynx erythema, uvula is mid-line Cardiovascular: Regular Rate and Rhythm without murmur, gallop or rub. Respiratory: No accessory muscle use or respiratory distress. Lungs are clear to auscultation, no wheezing, rales or rhonchi Musculoskeletal: Full ROM of all extremities, no calf or popliteal tenderness GI: Abdomen is soft, non-distended, RLQ/LLQ tender with palpation. No masses appreciated. No rebound, guarding, or rigidity noted. Periumbilical surgical scar noted, well-healed. Neurological: A&O x4. No cranial nerve dysfunction observed. No truncal ataxia. Moves all extremities. Sensation intact. Psychiatric: Cooperative and interactive. Normal mood and affect. Constitutional Vital Signs, click to edit/add: Last Vital Signs Temp 98.3 F 03/08/25 19:52 Pulse 68 03/08/25 19:52 Resp 17 03/08/25 19:52 BP 141/93 H 03/08/25 19:52 Pulse Ox 97 03/08/25 19:52 O2 Del Method Room Air 03/08/25 19:52 Documenting provider has reviewed patient's vital signs: yes Course Vital Signs Vital signs: Vital Signs Temperature 98.3 F 03/08/25 19:52 Pulse Rate 68 03/08/25 19:52 Respiratory Rate 17 03/08/25 19:52 Blood Pressure 141/93 H 03/08/25 19:52 Pulse Oximetry 97 03/08/25 19:52 Oxygen Delivery Method Room Air 03/08/25 19:52 Temperature 98.3 F 03/08/25 19:52 Pulse Rate 68 03/08/25 19:52 Respiratory Rate 17 03/08/25 19:52 Blood Pressure 141/93 H 03/08/25 19:52 Pulse Oximetry 97 03/08/25 19:52 Oxygen Delivery Method Room Air 03/08/25 19:52 Medical Decision Making MDM Narrative Medical decision making narrative: The patient is a 44-year-old male with a history of Crohn?s disease on Humara and post-colectomy (2010) who presents with a 3-week history of abdominal pain, bloody and mucus-containing stools, nausea, and a recent febrile episode. He reports weight loss of 9 pounds in the last week and a half. Labs from the past week show leukocytosis (WBC 17.5 last week trending to 15.7 today), mild anemia (Hgb 13.7 last week trending down to 12.7 today), and normal CMP and lipase. He is currently on high-dose prednisone for a Crohn?s flare given by his GI physician, Dr Kaufman. Vital signs are notable for mild hypertension (BP 141/93) and afebrile (T 98.3) at this time. Given his immunosuppressed state, persistent leukocytosis, ongoing symptoms, and inability to tolerate oral intake, he is at increased risk for Crohn?s-related complications including intra-abdominal abscess, obstruction, or perforation. IV access obtained, 1 L NS for hydration, 4 mg IV Zofran for nausea, and 4 mg IV morphine for pain. A CT abdomen/pelvis with IV contrast has been ordered to evaluate for abscess, obstruction, or other complications. At this time my shift has ended and patient case and care signed out to Dr. Huber. Disposition pending CT results and pain control. Differential Diagnosis Differential Diagnosis: Intra-abdominal abscess, SBO, bacterial enteritis Lab Data Lab results reviewed: Yes I reviewed the patient's lab results Labs: Lab Results 03/08/25 Range/Units 21:15 WBC 15.7 H (4.0-11.0) 10^3/uL RBC 4.29 L (4.70-6.10) 10^6/uL Hgb 12.7 L (14.0-18.0) g/dL Hct 38.1 L (42.0-54.0) % MCV 88.8 (80.0-94.0) fL MCH 29.6 (25.9-34.0) pg MCHC 33.3 (29.9-35.2) g/dL RDW 14.0 (11.0-15.0) % Plt Count 674 H (150-450) 10^3/uL MPV 8.3 L (9.5-13.5) fL Seg Neuts % (Manual) 61.0 (43.0-75.0) Lymphocytes % (Manual) 26.0 (20.5-60.0) % Monocytes % (Manual) 13.0 H (1.7-12.0) % Eosinophils % (Manual) 0.0 L (0.9-7.0) % Basophils % (Manual) 0.0 L (0.2-2.0) % Neutrophils # (Manual) 9.57 H (1.4-6.5) 10^3/uL Lymphocytes # (Manual) 4.08 H (1.20-3.80) 10^3/uL Monocytes # (Manual) 2.04 H (0.30-0.80) 10^3/uL Eosinophils # (Manual) 0.00 (0.00-0.70) 10^3/uL Basophils # (Manual) 0.00 (0.00-0.10) 10^3/uL Sodium 139 (136-145) mmol/L Potassium 3.3 L (3.5-5.1) mmol/L Chloride 104 (98-107) mmol/L Carbon Dioxide 31.5 (21.0-32.0) mmol/L Anion Gap 6.8 BUN 9.0 (7.0-18.0) mg/dL Creatinine 0.78 (0.70-1.30) mg/dL Est GFR ( Amer) >60 (>=60 mL/min/1.73m^2) Est GFR (Non-Af Amer) >60 (>=60 mL/min/1.73m^2) BUN/Creatinine Ratio 11.5 Glucose 104 (74-106) mg/dL Calcium 8.5 (8.5-10.1) mg/dL Total Bilirubin 0.2 (0.2-1.0) mg/dL AST 15 (15-37) U/L ALT 30 (16-63) U/L Alkaline Phosphatase 79 (46-116) U/L Total Protein 6.6 (6.4-8.2) g/dL Albumin 2.8 L (3.4-5.0) g/dL Globulin 3.8 g/dL Albumin/Globulin Ratio 0.7 Lipase 27.0 (16.0-77.0) U/L Discharge Plan Discharge Chief Complaint: Abdominal Pain Clinical Impression: Crohn's disease, Abdominal pain Patient Disposition: Home, Self-Care Time of Disposition Decision: 22:33 Prescriptions / Home Meds: No Action cholecalciferol (vitamin D3) 50 mcg (2,000 unit) capsule 50 mcg PO DAILY meloxicam 15 mg tablet 15 mg PO DAILY Rx Instructions: AM metronidazole 500 mg tablet 500 mg PO Q8H prednisone 10 mg tablet 10 mg PO DAILY sucralfate 1 gram tablet 1 g PO BID Rx Instructions: Before eating omeprazole 20 mg capsule,delayed release(DR/EC) 20 mg PO DAILY meclizine 25 mg tablet 25 mg PO TID PRN (Reason: dizziness) Qty: 20 0RF methylprednisolone [Medrol (Sohan)] 4 mg tablets,dose pack 4 mg PO DAILY Qty: 21 0RF doxycycline hyclate 100 mg tablet 100 mg PO BID 7 Days Qty: 14 0RF Print Language: Romanian Referrals: VALENCIA OLEA [Primary Care Provider, Unknown] - 1 week Documented by User: Elen Huber MD 03/08/25 22:36 HPI HPI - General Adult General Chief complaint: Abdominal Pain Stated complaint: ROBIN'S FLAIR UP Time Seen by Provider: 03/08/25 20:21 Related Data Home Medications ?Medication ?Instructions ?Recorded ?Confirmed cholecalciferol (vitamin D3) 50 50 mcg PO DAILY 10/15/22 10/15/22 mcg (2,000 unit) capsule meloxicam 15 mg tablet 15 mg PO DAILY 10/15/22 10/15/22 metronidazole 500 mg tablet 500 mg PO Q8H 10/15/22 10/15/22 omeprazole 20 mg capsule,delayed 20 mg PO DAILY 10/15/22 10/02/24 release prednisone 10 mg tablet 10 mg PO DAILY 10/15/22 10/15/22 sucralfate 1 gram tablet 1 g PO BID 10/15/22 10/15/22 Previous Rx's ?Medication ?Instructions ?Recorded meclizine 25 mg tablet 25 mg PO TID PRN dizziness #20 tabs 10/15/22 methylprednisolone 4 mg tablets in 4 mg PO DAILY #21 ea 10/15/22 a dose pack (Medrol (Sohan)) doxycycline hyclate 100 mg tablet 100 mg PO BID 7 days #14 tabs 10/02/24 Allergies Allergy/AdvReac Type Severity Reaction Status Date / Time No Known Drug Allergies Allergy Verified 03/08/25 19:52 Opioid HPI Opioid Management Most Recent Opioid Data: Last Pain Scale 9 Today, 21:39 Last MAR Pain Assessment Today, 21:39 [facility] Medical History (Updated 03/08/25 @ 21:57 by KOLTON Flores) Crohn disease ?K50.90 - Crohn's disease, unspecified, without complications (ICD-10) Social History Smoking status: Former smoker Little interest or pleasure in doing things: not at all Feeling down, depressed, or hopeless: not at all Exam Constitutional Vital Signs, click to edit/add: Last Vital Signs Temp 98.3 F 03/08/25 19:52 Pulse 68 03/08/25 19:52 Resp 17 03/08/25 19:52 BP 141/93 H 03/08/25 19:52 Pulse Ox 97 03/08/25 19:52 O2 Del Method Room Air 03/08/25 19:52 Course Vital Signs Vital signs: Vital Signs Temperature 98.3 F 03/08/25 19:52 Pulse Rate 68 03/08/25 19:52 Respiratory Rate 17 03/08/25 19:52 Blood Pressure 141/93 H 03/08/25 19:52 Pulse Oximetry 97 03/08/25 19:52 Oxygen Delivery Method Room Air 03/08/25 19:52 Temperature 98.3 F 03/08/25 19:52 Pulse Rate 68 03/08/25 19:52 Respiratory Rate 17 03/08/25 19:52 Blood Pressure 141/93 H 03/08/25 19:52 Pulse Oximetry 97 03/08/25 19:52 Oxygen Delivery Method Room Air 03/08/25 19:52 Medical Decision Making MDM Narrative Medical decision making narrative: The patient is a 44-year-old male with a history of Crohn?s disease on Humara and post-colectomy (2010) who presents with a 3-week history of abdominal pain, bloody and mucus-containing stools, nausea, and a recent febrile episode. He reports weight loss of 9 pounds in the last week and a half. Labs from the past week show leukocytosis (WBC 17.5 last week trending to 15.7 today), mild anemia (Hgb 13.7 last week trending down to 12.7 today), and normal CMP and lipase. He is currently on high-dose prednisone for a Crohn?s flare given by his GI physician, Dr Kaufman. Vital signs are notable for mild hypertension (BP 141/93) and afebrile (T 98.3) at this time. Given his immunosuppressed state, persistent leukocytosis, ongoing symptoms, and inability to tolerate oral intake, he is at increased risk for Crohn?s-related complications including intra-abdominal abscess, obstruction, or perforation. IV access obtained, 1 L NS for hydration, 4 mg IV Zofran for nausea, and 4 mg IV morphine for pain. A CT abdomen/pelvis with IV contrast has been ordered to evaluate for abscess, obstruction, or other complications. At this time my shift has ended and patient case and care signed out to Dr. Huber. Disposition pending CT results and pain control. This 44-year-old male was seen and evaluated conjunction with the physician licensed nursing assistant. He has a history of Crohn's disease and has had surgery several times. He is currently seeing Dr. Escobar and is on high dose prednisone at this time. He presents for ongoing nausea, pain and diarrhea. Labs are reviewed. His count is mildly elevated at 15.7 which is down from last week 17.5. Electrolytes are normal. CT scan of the abdomen pelvis shows findings consistent with diffuse colitis consistent with Crohn's but no abscess, bowel obstruction or other notable findings. The results of the CT scan were discussed with the patient. He states that he feels he needs something for pain to help him sleep. I explained to him I cannot give him sleep medication but can prescribe him a short course of narcotic analgesics and Zofran to help him with his recovery. He was encouraged to rest, drink plenty of fluids and return to the emergency department as needed until he can be seen in follow-up by his mannequin mounter. [place]AR[place] was reviewed and there is no recent narcotic activity Lab Data Labs: Lab Results 03/08/25 Range/Units 21:15 WBC 15.7 H (4.0-11.0) 10^3/uL RBC 4.29 L (4.70-6.10) 10^6/uL Hgb 12.7 L (14.0-18.0) g/dL Hct 38.1 L (42.0-54.0) % MCV 88.8 (80.0-94.0) fL MCH 29.6 (25.9-34.0) pg MCHC 33.3 (29.9-35.2) g/dL RDW 14.0 (11.0-15.0) % Plt Count 674 H (150-450) 10^3/uL MPV 8.3 L (9.5-13.5) fL Seg Neuts % (Manual) 61.0 (43.0-75.0) Lymphocytes % (Manual) 26.0 (20.5-60.0) % Monocytes % (Manual) 13.0 H (1.7-12.0) % Eosinophils % (Manual) 0.0 L (0.9-7.0) % Basophils % (Manual) 0.0 L (0.2-2.0) % Neutrophils # (Manual) 9.57 H (1.4-6.5) 10^3/uL Lymphocytes # (Manual) 4.08 H (1.20-3.80) 10^3/uL Monocytes # (Manual) 2.04 H (0.30-0.80) 10^3/uL Eosinophils # (Manual) 0.00 (0.00-0.70) 10^3/uL Basophils # (Manual) 0.00 (0.00-0.10) 10^3/uL Sodium 139 (136-145) mmol/L Potassium 3.3 L (3.5-5.1) mmol/L Chloride 104 (98-107) mmol/L Carbon Dioxide 31.5 (21.0-32.0) mmol/L Anion Gap 6.8 BUN 9.0 (7.0-18.0) mg/dL Creatinine 0.78 (0.70-1.30) mg/dL Est GFR ( Amer) >60 (>=60 mL/min/1.73m^2) Est GFR (Non-Af Amer) >60 (>=60 mL/min/1.73m^2) BUN/Creatinine Ratio 11.5 Glucose 104 (74-106) mg/dL Calcium 8.5 (8.5-10.1) mg/dL Total Bilirubin 0.2 (0.2-1.0) mg/dL AST 15 (15-37) U/L ALT 30 (16-63) U/L Alkaline Phosphatase 79 (46-116) U/L Total Protein 6.6 (6.4-8.2) g/dL Albumin 2.8 L (3.4-5.0) g/dL Globulin 3.8 g/dL Albumin/Globulin Ratio 0.7 Lipase 27.0 (16.0-77.0) U/L Discharge Plan Discharge Chief Complaint: Abdominal Pain Clinical Impression: Crohn's disease, Abdominal pain Patient Disposition: Home, Self-Care Time of Disposition Decision: 22:33 Prescriptions / Home Meds: No Action cholecalciferol (vitamin D3) 50 mcg (2,000 unit) capsule 50 mcg PO DAILY meloxicam 15 mg tablet 15 mg PO DAILY Rx Instructions: AM metronidazole 500 mg tablet 500 mg PO Q8H prednisone 10 mg tablet 10 mg PO DAILY sucralfate 1 gram tablet 1 g PO BID Rx Instructions: Before eating omeprazole 20 mg capsule,delayed release(DR/EC) 20 mg PO DAILY meclizine 25 mg tablet 25 mg PO TID PRN (Reason: dizziness) Qty: 20 0RF methylprednisolone [Medrol (Sohan)] 4 mg tablets,dose pack 4 mg PO DAILY Qty: 21 0RF doxycycline hyclate 100 mg tablet 100 mg PO BID 7 Days Qty: 14 0RF Print Language: Romanian Referrals: VALENCIA OLEA [Primary Care Provider, Unknown] - 1 week
--- OUTSIDE RECORDS SUMMARY | 2025-03-08 21:13 | XMS_ITS | Clinical Summary ---
Author Organization [facility] Address [address], [address] [place] [address] Care Team Providers Care Pencils Washer Name Role Phone Jose Enrique Priscilanirmal BENAVIDES - UNIX MANAGER Primary Care Provider [phone] Allergies No known active allergies Medications MedicationSigDispense QuantityRefillsLast FilledStart DateEnd DateStatus Omeprazole (PRILOSEC PO) Take by mouthActive adalimumab (HUMIRA) 40 MG/0.8ML injection Inject 0.8 mLs into the skin every 14 daysActive ferrous sulfate (FE TABS 325) 325 (65 Fe) MG EC tablet Take 1 tablet by mouth daily (with breakfast)4Active Testosterone (ANDROGEL) 20.25 MG/ACT (1.62%) GEL gel Indications:Low testosterone,Fatigue, unspecified typePlace 2 actuation onto the skin daily for 120 days. Max Daily Amount: 2,500 mg 2 each 506Active Active Problems ProblemNoted DateDiagnosed DateHistory of acute nxyskcmmyxpve77/05/2021 Encounters DateTypeDepartmentCare RebhPcredqnbwwe14/03/2025 8:00 AM EDTOffice Visit [facility] Part of [address] [place] [address] Migel Hope MD Low testosterone (Primary Dx); Fatigue, unspecified typefrom Last 3 Months Immunizations ImmunizationAdministration DatesNext DueTDaP, ADACEL (age 10y-64y), BOOSTRIX (age 10y+), IM, 0.5mL06/23/2024 Family History Medical HistoryRelationNameCommentsEczemaBrotherIrritable Bowel SyndromeBrother Heart DiseaseFatherIrritable Bowel SyndromeFatherBone CancerMaternal Grandfather DementiaMaternal GrandmotherHypertensionMotherSeizuresMotherThyroid CancerMother StrokePaternal GrandfatherBreast CancerPaternal GrandmotherRelationNameStatus CommentsBrotherAliveFatherMaternal GrandfatherMaternal GrandmotherMotherPaternal GrandfatherPaternal Grandmother Social History Tobacco UseTypesPacks/DayYears UsedDateSmoking Tobacco: Every DifKibpjwadqr759.6 Started: 08/16/2002Smokeless Tobacco: Former Tobacco Cessation:Ready to Q uit: Yes; Counseling Given: No Alcohol UseStandard Drinks/WeekCommentsYes0 (1 standard drink = 0.6 oz pure alcohol)AUDIT-CAnswerDate RecordedQ1: How often do you have a drink containing alcohol?Never06/23/2024Q2: How many drinks containing alcohol do you have on a typical day when you are drinking?Patient does not drink06/23/2024Q3: How often do you have six or more drinks on one occasion?Never06/23/2024Interpersonal Safety Domain Source: IP Abuse ScreeningAnswerDate RecordedPhysical abuseDenies 10/02/2024Verbal hhmuuHbfgxx20/14/2025Emotional fqagxAzvhix85/14/2025Financial ssckoLqjffo57/14/2025Sexual sjlsiWobowz68/14/2025Sex and Gender InformationValue Date RecordedSex Assigned at BirthNot on fileLegal DqbXtrx4205/01/2012 1:18 PM EST Gender IdentityNot on fileSexual OrientationNot on file Last Filed Vital Signs Vital SignReadingTime TakenCommentsBlood Yzzulxhe715/8812/22/2024 7:53 AM EDT Reazd604412/22/2024 7:53 AM FOFFwjbkqmvwqo98.6 ??C (97.8 ??F)12/22/2024 7:53 AM EDTRespiratory Nxzh270110/02/2024 5:27 PM EDTOxygen Mpljhyvzry85%10/02/2024 5:27 PM EDTInhaled Oxygen Concentration--Ozzwwb56.8 kg (187 lb)12/22/2024 7:53 AM EDT Wosjdn315.2 cm (5' 7 )12/22/2024 7:53 AM EDTBody Mass Index29.291 7:53 AM EDT Plan of Treatment DateTypeDepartmentCare Team (Latest Contact Info)Xqkdzblbzqz49/09/2026 8:00 AM ESTOffice Visit [facility] Part of [address] [place] [address] Migel Hope MD [address] [place] [address] 3M testesterone labsHealth MaintenanceDue DateLast DoneCommentsDepression Screen 1992Varicella vaccine (1 of 2 - 13+ 2-dose series)1993HIV screen 1995Hepatitis C dwtspx4104/18/1998Hepatitis B vaccine (1 of 3 - 19+ 3-dose series)1999Pneumococcal 0-49 years Vaccine (1 of 2 - PCV)1999Flu vaccine (#1)5COVID-19 Vaccine (1 - 2023- season)2024Lipids /4DTaP/Tdap/Td vaccine (3 - Td or Tdap)504/06/2024, 10/01/2017Diabetes qsleyjKhhcomxdixvt45/18/2024HPV vaccine (No Doses Required) CompletedHepatitis A vaccineAged OutNo longer eligible based on patient's age to complete this topicHib vaccineAged OutNo longer eligible based on patient's age to complete this topicMeningococcal (ACWY) vaccineAged OutNo longer eligible based on patient's age to complete this topicMeningococcal B vaccineAged OutNo longer eligible based on patient's age to complete this topicPolio vaccineAged OutNo longer eligible based on patient's age to complete this topic Procedures Procedure NamePriorityDate/TimeAssociated DiagnosisCommentsHEMOGLOBIN E3NNkdcvag 01/07/2024 2:15 PM EDT LIPID XBYSKBptyuaz89/18/2024 2:15 PM EDT from Last 3 Months or Most Recently Relevant to Health Maintenance Results * Hemoglobin A1C (01/07/2024 2:15 PM EDT)ComponentValueRef RangeTest Method Analysis TimePerformed AtPathologist SignatureHemoglobin A1C5.44.0 - 6.0 % 01/07/2024 2:15 PM EDTMERCY LABORATORIESEstimated Avg Okkxagl847pu/dL 01/07/2024 2:15 PM EDTMERCY LABORATORIESComment: The ADA and AACC recommend providing the estimated average glucose result to permit better patient understanding of their HBA1c result. Specimen (Source)Anatomical Location / LateralityCollection Method / Volume Collection TimeReceived Time01/07/2024 2:15 PM EDT1 2:16 PM EDT Narrative Authorizing ProviderResult TypeResult StatusRachel Fruth VP EMERGING MEDIA - NPCHEMISTRY ORDERABLESFinal ResultPerforming OrganizationAddressCity/State/ZIP CodePhone Number [facility] [address] [place] [address], [facility] [phone] [facility] [address] [place] [address], [facility] [phone] * (ABNORMAL) Lipid Panel (01/07/2024 2:15 PM EDT)ComponentValueRef RangeTest MethodAnalysis TimePerformed AtPathologist SignatureCholesterol, Xgsar5593 - 199 mg/dL01/07/2024 2:15 PM EDTMERCY LABORATORIESComment: Cholesterol Guidelines: <200 Desirable 200-240 ??Borderline >240 Undesirable HDL45>40 mg/dL01/07/2024 2:15 PM EDTMERCY LABORATORIESComment: HDL Guidelines: <40 Undesirable 40-59 ?Borderline >59 Desirable LDL Iqldfxkmkwm128(H)0 - 100 mg/dL01/07/2024 2:15 PM EDTMERCY LABORATORIES Comment: LDL Guidelines: <100 Desirable 100-129 ?? Near to/above Desirable 130-159 ?? Borderline >159 Undesirable Direct (measured) LDL and calculated LDL are not interchangeable tests. Chol/HDL Ratio4. 2:15 PM EDTMERCY OJBBWUJNVBSJGukcwodqfdbuw618<150 mg/dL01/07/2024 2:15 PM EDTMERCY LABORATORIESComment: Triglyceride Guidelines: <150 Desirable 150-199 ??Borderline 200-499 ??High >499 Very high Based on AHA Guidelines for fasting triglyceride, December 2011. IMMY61gp/dL01/07/2024 2:15 PM EDTMERCY LABORATORIESSpecimen (Source)Anatomical Location / LateralityCollection Method / VolumeCollection TimeReceived Time 01/07/2024 2:15 PM EDT1 2:16 PM EDT Narrative Authorizing ProviderResult TypeResult StatusRachel Fruth VP EMERGING MEDIA - NPCHEMISTRY ORDERABLESFinal ResultPerforming OrganizationAddressCity/State/ZIP CodePhone Number [facility] [address] [place] [address], [facility] [phone] [facility] [address] [place], [place] [address] [phone] from Last 3 Months or Most Recently Relevant to Health Maintenance Insurance Advance Directives * Full Code (Latest Code Status on File) Date ActivatedDate LacqabtszcjVcsdzekf96/5/2021 11:03 AM01/24/2021 4:06 PM * Full Code Date ActivatedDate MzuvajkvffgZlamhnwn73/5/2021 7:25 AM01/24/2021 11:03 AM Care Teams Team MemberRelationshipSpecialtyStart DateEnd Date Priscila Quispe APRN - NO [facility] [address] [place], [place] [id number] [facility] - Njguyfo86/9/21
--- OUTSIDE RECORDS SUMMARY | 2025-03-08 21:13 | XMS_ITS | Clinical Summary ---
Author Organization [facility] Address [address] [place] [address] Care Team Providers Care Musical String Maker Name Role Phone Julian Pena Primary Care Provider [phone] Nam Hector MD Unavailable [phone] Allergies No known active allergies Medications MedicationSigDispense QuantityRefillsLast FilledStart DateEnd DateStatus omeprazole (PRILOSEC) 20 mg capsule TAKE ONE(1) CAPSULE QAM ON EMPTY STOMACH 30 capsule 11004/18/2012ctive adalimumab (HUMIRA) 40 mg/0.8 mL injection Inject 40 mg subcutaneously one time only.Active VITAMIN E, DL,TOCOPHERYL ACET, (VITAMIN E, DL, ACETATE, ORAL) Take 1 tablet by mouth three times daily.Active Active Problems ProblemNoted DateDiagnosed DatePeyronie's meepaqj0412/07/2016Acquired curvature of penis12/07/2016Penile pain12/07/2016Lung wnqyjg5407/29/2011Nausea alone07/29/2011 Crohn's emczuia9905/07/2011 Social History Tobacco UseTypesPacks/DayYears UsedDateSmoking Tobacco: Every DayCigarettes Alcohol UseStandard Drinks/WeekCommentsNo0 (1 standard drink = 0.6 oz pure alcohol)Sex and Gender InformationValueDate RecordedSex Assigned at BirthNot on fileLegal VyoHhtc18/02/2012 10:13 AM ESTGender IdentityNot on fileSexual OrientationNot on file Last Filed Vital Signs Vital SignReadingTime TakenCommentsBlood Ytyqpmjn572/9409 8:30 AM EDT Pwcgi5416 8:30 AM NFRTainliiikyp85.1 ??C (97 ??F)12/07/2016 8:30 AM EDT Respiratory Rate--Oxygen Bxaqoluyav87%05/20/2011 10:18 AM ESTInhaled Oxygen Concentration--Xusduy23.8 kg (193 lb 9.6 oz)12/07/2016 8:30 AM NFSGfwgia480.2 cm (5' 7 )12/07/2016 8:30 AM EDTBody Mass Index30.32012/07/2016 8:30 AM EDT Plan of Treatment Health MaintenanceDue DateLast DoneCommentsAnxiety Acvizdihe13/28/1999Depression Qscbpusar79/28/1999HIV Eqtnuzqcu29/28/1999Hepatitis C Mjwcsepnn92/28/1999 DTaP,Tdap,Td Vaccine (1 - Tdap)1999Hepatitis B Vaccine (1 of 3 - 19+ 3- dose series)1999HPV Vaccine (1 - 3-dose SCDM series)2007Lipid Rxmkhgyhx49/28/2016Covid-19 Vaccine (1 - 2024- season)2024Influenza Vaccine (#1)2024 Insurance Care Teams Team MemberRelationshipSpecialtyStart DateEnd Date Julian Pena [address] [place] [phone] PCP - GeneralFamily Medicine1/17/12 Nam Hector MD [address] [facility] [address] [place] [address] ReferringUrology11/06/16
--- OUTSIDE RECORDS SUMMARY | 2025-03-08 21:13 | XMS_ITS | Clinical Summary ---
Author Organization [facility] Address [address] [place] [address] Care Team Providers Care Mother'S Helper Name Role Phone Renate Alfred Renee DO Primary Care Provider [phone] Thais Hathaway MARKET ASSET PROTECTION MANAGER Unavailable [phone] Allergies No known active allergies Medications MedicationSigDispense QuantityRefillsLast FilledStart DateEnd DateStatus omeprazole OTC (PriLOSEC OTC) 20 MG EC tablet Take 20 mg by mouth in the morning. Take before meals.Active adalimumab (Humira) 40 MG/0.8ML Prefilled Syringe Kit prefilled syringe Inject 40 mg under the skin every 14 (fourteen) daysActive Testosterone 20.25 MG/ACT (1.62%) gel Place 2,500 mg on the skin5Active ferrous sulfate 325 (65 Fe) MG EC tablet Indications:Other iron deficiency anemiaTAKE 1 TABLET (325 MG) BY MOUTH IN THE MORNING. TAKE WITH MEALS. DO NOT CRUSH, CHEW, OR SPLIT.. 90 tablet 5Active Active Problems ProblemNoted DateDiagnosed DateCrohn's disease of both small and large intestine without fimpkhtkvbxm14/30/1373Zaalsxaephbrakrn39/30/2023Mixed hyperlipidemia 09/18/20225652Bbqhbv11/30/2023Vitamin D kkcgyyrzlu66/30/2023eyronie's disease 12/07/2016Lung despjf5607/29/2011 Resolved Problems ProblemNoted DateDiagnosed DateResolved DateHistory of acute cholecystitis /cquired curvature of penisenile pain rohn's jqqmwry49 Encounters DateTypeDepartmentCare UbrcHlzeeasajpk91/15/2025Refill [place] [place] [address] [place] [address] Priscila Quispe, NO Other iron deficiency pymosn3112/25/2024Telephone [facility] [address] [place] [address] Priscila Quispe NP lab prior auth for genetic test12/25/2024bstract [facility] [address] [place] [address] Priscila Quispe NP 12/21/2024Telephone [place] [address] [place] [address] Misty Guzmán MA Lab Zswqpo2612/15/2024 9:30 AM EDTOffice Visit [place] [address] [place] [address] Priscila Quispe, NO 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); Essential (hemorrhagic) thrombocythemia (HCC)12/15/2024Travelfrom Last 3 Months Immunizations ImmunizationAdministration DatesNext NrnAtav5706/23/2024,10/01/2017 Family History Medical HistoryRelationNameCommentsEczemaBrotherIrritable bowel syndromeBrother No Known ProblemsDaughterCoronary artery diseaseFatherHeart diseaseFather Irritable bowel syndromeFatherBone cancerMaternal GrandfatherJames FretzDementia Maternal GrandmotherHypertensionMotherDebra RohrbacherSeizuresMotherDebra RohrbacherThyroid cancerMotherDebra RohrbacherStrokePaternal GrandfatherCliff WaltersBreast cancerPaternal GrandmotherVivian meyersGenetic DisorderSisterNo Known KvulrkbcUjbJhsoegtoIjgyEhotenVzppjaalUvxavwsh3TjywphsuDaukol8TfijwsEwvkc Maternal GrandfatherJames FretzDeceasedMaternal GrandmotherDeceasedMotherDebra RohrbacherAlivePaternal GrandfatherCliff WaltersDeceasedPaternal Grandmother Laura bainlskunpLgiannlqTfjghgVrbjdl2ZvxZdqfva4 Social History Tobacco UseTypesPacks/DayYears UsedDateSmoking Tobacco: Every FwiPcvyjqxvfs490.6 Started: 08/17/2007Smokeless Tobacco: Never Tobacco Cessation:Ready to Q uit: Not Asked; Counseling Given: Not Answered Alcohol UseStandard Drinks/WeekCommentsYes1 (1 standard drink = 0.6 oz pure alcohol)caffeine intake: 2-3 cups per kxnL3152 Health LiteracyAnswerDate RecordedHow often do you need to have someone help you when you read instructions, pamphlets, or other written material from your doctor or pharmacy? Never12/31/2023Humiliation, Afraid, Rape, and Kick questionnaireAnswerDate RecordedWithin the last year, have you been afraid of your partner or ex-partner?No09/17/2022Within the last year, have you been humiliated or emotionally abused in other ways by your partner or ex-partner?No09/17/2022 Within the last year, have you been kicked, hit, slapped, or otherwise physically hurt by your partner or ex-partner?No09/17/2022Within the last year, have you been raped or forced to have any kind of sexual activity by your part ner or ex-partner?No09/17/2022Social Connection and Isolation PanelAnswerDate RecordedIn a typical week, how many times do you talk on the phone with family, friends, or neighbors?More than three times a week12/31/2023How often do you get together with friends or relatives?More than three times a week12/31/2023How often do you attend methodist or moravian services?Patient /11/2024Do you belong to any clubs or organizations such as methodist groups, unions, fraternal or athletic groups, or school groups?Patient dosouvut15/11/2024How often do you attend meetings of the clubs or organizations you belong to?Patient wjvuwjzf12/11/2024Are you , , , , never , or living with a partner?Rxmaxmy3212/31/2023UDIT-CAnswerDate RecordedQ1: How often do you have a drink containing alcohol?2-4 times a month11/03/2024Q2: How many drinks containing alcohol do you have on a typical day when you are drinking?3 or Q3: How often do you have six or more drinks on one occasion?Less than sllpgzh2811/03/2024Overall Financial Resource Strain (CARDIA) AnswerDate RecordedHow hard is it for you to pay for the very basics like food, housing, medical care, and heating?Patient juitxrfu93/11/2024HQ-2AnswerDate RecordedPatient Health Questionnaire-2 Ppuks220Finmountain point medical center [place] of Occupational Health - Occupational Stress QuestionnaireAnswerDate RecordedDo you feel stress - tense, restless, nervous, or anxious, or unable to sleep at night because yourmind is troubled all the time - these days?Not at all12/31/2023 Exercise Vital SignAnswerDate RecordedOn average, how many days per week do you engage in moderate to strenuous exercise (like a brisk walk)?Patient declined 12/31/2023On average, how many minutes do you engage in exercise at this level? Patient brywqbdl38/11/2024Hunger Vital SignAnswerDate RecordedWithin the past 12 months, you worried that your food would run out before you got the money to buy more.Patient jfvigytd03/11/2024Within the past 12 months, the food you bought just didn't last and you didn't have money to get more.Patient declined 12/31/2023RAPARE - TransportationAnswerDate RecordedIn the past 12 months, has lack of transportation kept you from medical appointments or from getting medications?Patient pvbqiuok82/11/2024In the past 12 months, has lack of transportation kept you from meetings, work, or from getting things needed for daily living?Patient hewdwvnp58/11/2024Housing Stability Vital SignAnswerDate RecordedIn the last 12 months, was there a time when you were not able to pay the mortgage or rent on time?Yes09/17/2022In the last 12 months, how many places have you lived?In the last 12 months, was there a time when you did not have a steady place to sleep or slept in ashelter (including now)?No 09/17/2022Housing Stability Vital SignAnswerDate RecordedIn the last 12 months, was there a time when you were not able to pay the mortgage or rent on time? Patient frcugddu58/11/2024Number of Times Moved in the Last YearNot on file 12/31/2023t any time in the past 12 months, were you homeless or living in a senior living (including now)?Patient /11/2024Sex and Gender Information ValueDate RecordedSex Assigned at BirthNot on fileLegal NanOzaa2406/03/2022 7:19 PM EDTGender IdentityNot on fileSexual OrientationNot on file Last Filed Vital Signs Vital SignReadingTime TakenCommentsBlood Nzsyqnwf266/8609 9:42 AM EDT Bqwdx241412/15/2024 9:26 AM YMWUwbbouhsvwn26.2 ??C (95.3 ??F)12/15/2024 9:26 AM EDTRespiratory Rate--Oxygen Kwykkddxeu26%12/15/2024 9:26 AM EDTInhaled Oxygen Concentration--Iyupin97.1 kg (187 lb 9.6 oz)12/15/2024 9:26 AM BDNXsxmzu151.2 cm (5' 7 )12/15/2024 9:26 AM EDTBody Mass Index29.3809 9:26 AM EDT Plan of Treatment Health MaintenanceDue DateLast DoneCommentsPneumococcal Vaccine: Pediatrics (0 to 5 Years) and At-Risk Patients (6 to 64 Years) (1 of 2 - PCV)1999COVID- 19 Vaccine (1 - season)2024Influenza Vaccine (#1)2025 Postponed from 11/20/2024 (Patient Refused) Procedures Procedure NamePriorityDate/TimeAssociated DiagnosisCommentsIRON, TOTALRoutine 12/15/2024 9:42 AM EDT Other iron deficiency anemia from Last 3 Months Results * (ABNORMAL) Iron level (12/15/2024 9:42 AM EDT)ComponentValueRef RangeTest MethodAnalysis TimePerformed AtPathologist SignatureIRON, PTTNY832(H)50 - 180 mcg/dLQUESTSpecimen (Source)Anatomical Location / LateralityCollection Method / VolumeCollection TimeReceived TimeBloodVenous blood specimen / Unknown 12/15/2024 9:42 AM EDT12/15/2024 9:42 AM EDT Narrative Resulting Agency Comment Performing Organization Information ?Site ID: QPT ?Name: [facility] ?Address: [address] [place] [address], [address] [place] [phone] ?Director: Tho Gandhi MD Authorizing ProviderResult TypeResult StatusRachel E Fruth NPLAB BLOOD ORDERABLESFinal ResultPerforming OrganizationAddressCity/[facility]/ZIP CodePhone Number QUEST from Last 3 Months Insurance Care Teams Team MemberRelationshipSpecialtyStart DateEnd Alfred Dewitt DO [address] [place] [address] PCP - GeneralFamily Medicine09/16/22 Thais Hathaway NP [address] [place] [address] Nurse PractitionerFamily Medicine09/16/22
[2025-03-08] MEDS: 0.9 % SODIUM CHLORIDE 1,000 ML 1000 ML IV (21:22)
[2025-03-08 21:34] LABS: Hematocrit 38.1 % (42.0-54.0); Hemoglobin 12.7 g/dL (14.0-18.0); Mean Corpuscular HGB Conc 33.3 g/dL (29.9-35.2); Mean Corpuscular Hemoglobin 29.6 pg (25.9-34.0); Mean Corpuscular Volume 88.8 fL (80.0-94.0); Platelet Count 674 10^3/uL (150-450); Red Blood Count 4.29 10^6/uL (4.70-6.10); White Blood Count 15.7 10^3/uL (4.0-11.0)
[2025-03-08] MEDS: MORPHINE SULFATE 4 MG/ML VIAL IV (21:39)
[2025-03-08 21:41] LABS: Alanine Aminotransferase 30 U/L (16-63); Albumin Globulin Ratio 0.7; Albumin Level 2.8 g/dL (3.4-5.0); Alkaline Phosphatase 79 U/L (46-116); Anion Gap 6.8; Aspartate Amino Transferase 15 U/L (15-37); Blood Urea Nitrogen 9.0 mg/dL (7.0-18.0); Calcium 8.5 mg/dL (8.5-10.1); Carbon Dioxide 31.5 mmol/L (21.0-32.0); Chloride 104 mmol/L (98-107); Estimated GFR (African America >60 (>=60 mL/min/1.73m^2); Estimated GFR (Non-African Ame >60 (>=60 mL/min/1.73m^2); Globulin 3.8 g/dL; Glucose 104 mg/dL (74-106); Lipase 27.0 U/L (16.0-77.0); Potassium 3.3 mmol/L (3.5-5.1); Sodium 139 mmol/L (136-145); Total Protein 6.6 g/dL (6.4-8.2)
[2025-03-08 21:45] LABS: Basophils Abs Manual 0.00 10^3/uL (0.00-0.10); Basophils Percent Manual 0.0 % (0.2-2.0); Eosinophils Absolute Manual 0.00 10^3/uL (0.00-0.70); Eosinophils Percent Manual 0.0 % (0.9-7.0); Lymphocytes Absolute Manual 4.08 10^3/uL (1.20-3.80); Lymphocytes Percent Manual 26.0 % (20.5-60.0); Monocytes Absolute Manual 2.04 10^3/uL (0.30-0.80); Monocytes Percent Manual 13.0 % (1.7-12.0); Segmented Neut Absolute Manual 9.57 10^3/uL (1.4-6.5); Segmented Neutrophils % Manual 61.0 (43.0-75.0)
[2025-03-08] MEDS: OXYCODONE HCL/ACETAMINOPHEN 5MG/325MG 1 TAB PO (22:48)
== END 2025-03-08 22:55 | disposition home or self-care (01) ==
PROVIDERS: Physician Assistant; Emergency Provider Emergency Medicine; PCP Nurse Practitioner
DX: K50.90 Crohn's disease, unspecified, without complications (principal); R10.9 Unspecified abdominal pain; Z90.49 Acquired absence of other specified parts of digestive tract; Z87.891 Personal history of nicotine dependence
CPT/HCPCS: 36415; 74177; 80053; 81001; 83690; 85007; 85027; 99284; J2270; J2405; Q9967